=== PATIENT | female | born 1980 | race Caucasian/White ===

== ENCOUNTER 2022-07-29 22:40 | Emergency (ER) | payer BC, MEDICAID, OTHER ==
[2022-07-29] MEDS ORDERED: Ibuprofen 600 MG Tab PO ONE (23:29)
== END 2022-07-29 23:47 | disposition home or self-care (01) ==
LOC: FB.ED 22:40
DX: S92.534A Nondisplaced fracture of distal phalanx of right lesser toe(s), initial encounter for closed fracture (principal); F17.210 Nicotine dependence, cigarettes, uncomplicated; W22.09XA Striking against other stationary object, initial encounter
CPT/HCPCS: 73660; 99283; A9270